=== PATIENT | female | born 1975 | race Caucasian/White ===

== ENCOUNTER 2020-11-24 14:54 | Emergency (ER) | payer SELFPAY ==
[~2020-11-24] VITALS: Ht 167.6 cm; Wt 100.0 kg
[2020-11-24 15:21] VITALS: BP 122/73
[2020-11-24] MEDS ORDERED: ACETAMINOPHEN 500MG TABLET PO ONE (15:45)
[2020-11-24 16:00] LABS: BASOPHILS % 0.6 % (0.0-2.0); EOSINOPHILS % 0.4 % (0.0-5.0); HEMATOCRIT. 46.1 % (36.0-48.0); HEMOGLOBIN. 15.3 g/dL (12.0-16.0); LYMPHOCYTES % 39.3 % (20.0-50.0); MEAN CORPUSCULAR HEMOGLOBIN 29.2 pg (28.0-32.0); MEAN CORPUSCULAR VOLUME 88.2 fL (81.0-99.0); MEAN PLATELET VOLUME 8.1 fl (7.4-10.4); MONOCYTES % 8.5 % (2.0-8.0); NEUTROPHILS % 51.2 % (40.0-76.0); PLATELET 182 x1000/uL (130-400); RED BLOOD CELL COUNT 5.23 mill/uL (4.2-5.4); RED CELL DISTRIBUTION WIDTH 13.7 % (11.6-14.6)
[2020-11-24 16:01] LABS: CHLORIDE 105 mEq/L (98-107)
== END 2020-11-24 18:44 | disposition home or self-care (01) ==
LOC: ER 14:54
DX: U07.1 COVID-19 (principal); R05 Cough; R50.9 Fever, unspecified; R73.03 Prediabetes
CPT/HCPCS: 36415; 71045; 80053; 83880; 84484; 85025; 93005; 99285; C9803; U0003